=== PATIENT | female | born 1985 | race Caucasian/White ===

== ENCOUNTER 2017-05-24 07:14 | Day surgery (SDC) | payer OTHER ==
[~2017-05-24 07:14] MED LIST: CEFAZOLIN 1 GM INJ
[2017-05-24] MEDS ORDERED: CEFAZOLIN 2 GM/50 ML (PMX) 50 ML IVPB (09:30)
[2017-05-24] MEDS ORDERED: SOD CHLORIDE 0.9% 1,000 ML IV (09:30)
[2017-05-24] MEDS ORDERED: PROPOFOL 20 ML (10:49)
[2017-05-24] MEDS ORDERED: LIDOCAINE 2% (SDV) 5 ML INJ (10:49)
[2017-05-24] MEDS ORDERED: FENTAnyl 50 MCG/ML VIAL (10:50)
[2017-05-24] MEDS ORDERED: HYDROmorphONE (0.2 MG/ML) 10ML SYG IV ×3 (11:00)
[2017-05-24] MEDS ORDERED: FENTAnyl 50 MCG/ML VIAL IV ×3 (11:00)
[2017-05-24] MEDS ORDERED: METOCLOPRAMIDE 10 MG INJ IV (11:00)
[2017-05-24] MEDS ORDERED: MEPERIDINE 25 MG INJ IV (11:00)
[2017-05-24] MEDS ORDERED: KETOROLAC 30 MG INJ IV (11:00)
[2017-05-24] MEDS ORDERED: ALBUTEROL 0.083% (NEB) 2.5 MG/3 ML AMP HHN (11:00)
[2017-05-24] MEDS ORDERED: MIDAZOLAM 1 MG/ML 2 ML INJ IV (11:00)
[2017-05-24] MEDS ORDERED: ONDANSETRON 4 MG INJ IV (11:00)
[2017-05-24] MEDS ORDERED: LABETALOL HCL 20MG INJ IV (11:00)
[2017-05-24] MEDS ORDERED: DIPHENHYDRAMINE 50 MG INJ IV (11:00)
[2017-05-24] MEDS ORDERED: OXYCODONE/ACETAMINOPHEN (5/325) TAB PO ×2 (11:00)
[2017-05-24] MEDS ORDERED: ONDANSETRON 4 MG INJ (11:21)
[2017-05-24] MEDS ORDERED: DEXAMETHASONE 4 MG/ML 1 ML INJ (11:21)
[2017-05-24] MEDS ORDERED: BACITRACIN/POLYMYXIN 28.35 GM OINT TOP (11:41)
[2017-05-24] MEDS: BUPIVACAINE 0.25% (MPF) 30 ML INJ (11:44)
[2017-05-24] MEDS: HYDROCODONE/APAP (5/325) TAB PO (12:28)
== END 2017-05-24 13:17 | disposition home or self-care (01) ==
LOC: SDS 07:14
DX: L72.11 Pilar cyst (principal); E66.01 Morbid (severe) obesity due to excess calories; Z68.41 Body mass index [BMI] 40.0-44.9, adult
CPT/HCPCS: 14020; 88307